=== PATIENT | male | born 1990 | race Two or more races ===

== ENCOUNTER 2019-12-12 14:22 | Emergency (ER) | payer OTHER ==
[2019-12-12] MEDS ORDERED: Lidocaine 1% 10 ML MDV INJECT ONE (14:53)
--- NOTE | 2019-12-12 15:49 | EDM.PDOC ---
ED HPI GENERAL MEDICAL PROBLEM - General Chief Complaint: Laceration Stated Complaint: LEFT HAND LACERATION Time Seen by Provider: 12/12/19 14:44 Source of Information: Reports: Patient History Limitations: Reports: No Limitations - History of Present Illness INITIAL COMMENTS - FREE TEXT/NARRATIVE: Patient is a 29-year-old male who presents from the occupational health clinic with 2 lacerations to his left hand. He states they were taking down a fan on his rig site and it fell on his hand. The fan was not on when the blade cut him. He did receive a tetanus vaccination at the occupational health clinic and the wound was cleaned and re-bandaged prior to coming here. - Related Data Allergies Allergy/AdvReac Type Severity Reaction Status Date / Time No Known Allergies Allergy Verified 12/12/19 14:35 Home Meds: Home Meds . [No Known Home Meds] 12/12/19 [History] Past Medical History - Past Surgical History GI Surgical History: Reports: Hernia, Abdominal Social & Family History - Family History Family Medical History: Noncontributory - Tobacco Use Smoking Status *Q: Current Every Day Smoker Years of Tobacco use: 2 Packs/Tins Daily: 0.2 - Caffeine Use Caffeine Use: Reports: Coffee, Energy Drinks, Soda - Recreational Drug Use Recreational Drug Use: No ED ROS GENERAL - Review of Systems Review Of Systems: Comprehensive ROS is negative, except as noted in HPI. ED EXAM, SKIN/RASH Exam: See Below Exam Limited By: No Limitations General Appearance: Alert, WD/WN, No Apparent Distress Respiratory/Chest: No Respiratory Distress, Lungs Clear, Normal Breath Sounds, No Accessory Muscle Use, Chest Non-Tender Cardiovascular: Normal Peripheral Pulses, Regular Rate, Rhythm, No Edema, No Gallop, No JVD, No Murmur, No Rub Neurological: Alert, Oriented, CN II-XII Intact, Normal Cognition, Normal Gait, Normal Reflexes, No Motor/Sensory Deficits Psychiatric: Normal Affect, Normal Mood Skin: Other (7 cm U-shaped laceration ulner aspect of left hand. 1.5 cm u shaped laceration on the dorsal aspect over the left 5th finger over the DIP joint. Full ROM and strength against resistance to all digits.) ED SKIN PROCEDURES - Laceration/Wound Repair Left Medial Hand Appearance: Subcutaneous Distal NVT: Neuro & Vascular Intact Anesthetic Type: Local Local Anesthesia - Lidocaine (Xylocaine): 1% Plain Local Anesthetic Volume: 4cc Skin Prep: Chlorhexidine (Hibiciens), Providone-Iodine (Betadine) Exploration/Debridement/Repair: Wound Explored Closed with: Sutures Lac/Wound length In cm: 7 Suture Size: 4-0 # of Sutures: 11 Suture Type: Nylon Tetanus Status Addressed: Yes Complications: No Left Distal Ventral Digit - 5th (Baby) Appearance: Subcutaneous Distal NVT: Neuro & Vascular Intact Anesthetic Type: Local Local Anesthesia - Lidocaine (Xylocaine): 1% Plain Local Anesthetic Volume: 1cc Skin Prep: Chlorhexidine (Hibiciens), Providone-Iodine (Betadine) Exploration/Debridement/Repair: Wound Explored Closed with: Sutures Lac/Wound length In cm: 1.5 Suture Size: 4-0 # of Sutures: 3 Suture Type: Nylon Course - Vital Signs Last Recorded V/S: Last Vital Signs Temp 99.1 F 12/12/19 14:31 Pulse 90 12/12/19 14:31 Resp 16 12/12/19 14:31 BP 136/67 12/12/19 14:31 Pulse Ox 98 12/12/19 14:31 - Orders/Labs/Meds Meds: Medications Discontinued Medications Generic Name Dose Route Start Last Admin Trade Name Peterq PRN Reason Stop Dose Admin Lidocaine HCl 10 ml 12/12/19 14:53 12/12/19 14:58 Xylocaine 1% INJECT 12/12/19 14:54 10 ml ONETIME ONE Administration Departure - Departure Time of Disposition: 15:54 Disposition: Home, Self-Care 01 Condition: Fair Clinical Impression: Laceration - Discharge Information *PRESCRIPTION DRUG MONITORING PROGRAM REVIEWED*: No *COPY OF PRESCRIPTION DRUG MONITORING REPORT IN PATIENT ANDRE: No Instructions: Laceration Care, Adult, [id number], Stitches, Jenny, or Adhesive Wound Closure, [id number] Referrals: PCP,None [Primary Care Provider] - Forms: ED Department Discharge Additional Instructions: You were seen in the emergency department for a 7 cm laceration to your left medial hand and a 1.5 cm laceration to your left little finger. The wound was cleansed and closed with 14 sutures. The sutures should stay intact for 10 days at the occupational health clinic. The wound should be kept clean and dry. Wash with regular soap and water twice daily and then pat dry. If there is a chance that the wound may become contaminated, cover it with a Band-Aid. Otherwise it may be left open to air. Watch for signs of infection including redness, swelling, or purulent drainage. If these should occur please follow-up with your primary care provider or return to the emergency department. Sepsis Event Note - Evaluation Sepsis Screening Result: No Definite Risk - Focused Exam Date Exam was Performed: 12/13/19 Time Exam was Performed: 20:57
== END 2019-12-12 16:09 | disposition home or self-care (01) ==
LOC: JD.ED 14:22
DX: S61.217A Laceration without foreign body of left little finger without damage to nail, initial encounter (principal); S61.412A Laceration without foreign body of left hand, initial encounter; W31.89XA Contact with other specified machinery, initial encounter
CPT/HCPCS: 12004; 99282; J2001; 12002